=== PATIENT | female | born 1965 | race Caucasian/White ===

== ENCOUNTER 2017-03-19 08:41 | Emergency (ER) | payer OTHER ==
[2017-03-19 10:38] LABS: BASOPHILS 0.8 % (0-2); EOSINOPHILS 4.1 % (0-7); HEMATOCRIT 39.7 % (36.0-48.0); HEMOGLOBIN 12.8 g/dL (12-16); IMMATURE GRANULOCYTES 0.6 % (0-5); LYMPHOCYTES 44.7 % (15-50); MCH 29.3 pg (26.0-34.0); MCHC 32.2 g/dL (31.0-37.0); MCV 90.8 fL (80.0-100.0); MEAN PLATELET VOLUME 11.5 fL (7.4-10.4); MONOCYTES 14.5 % (2-11); NEUTROPHILS 35.3 % (40-80); PLATELET COUNT 241 10x3/uL (130-400); RBC 4.37 10x6/uL (4.00-5.40); RDW 13.2 % (11.5-14.5); WBC 5.1 10x3/uL (4.8-10.8)
[2017-03-19 10:49] LABS: BILIRUBIN - TOTAL 0.11 mg/dL (0.2-1.3); CALCIUM 8.9 mg/dL (8.5-10.1); CARBON DIOXIDE 25.2 mmol/L (21.0-32.0); CREATININE - SERUM 1.1 mg/dL (0.6-1.3); POTASSIUM - SERUM 4.2 mmol/L (3.5-5.1); PROTEIN - SERUM 7.7 g/dL (6.4-8.2)
== END 2017-03-19 13:17 | disposition home or self-care (01) ==
LOC: D.ER 08:41
PROVIDERS: Emergency Medicine
DX: T81.4XXA Infection following a procedure, initial encounter (principal); S91.001A Unspecified open wound, right ankle, initial encounter; F17.200 Nicotine dependence, unspecified, uncomplicated